=== PATIENT | male | born 1960 | race American Indian/Alaskan Native ===

== ENCOUNTER 2020-11-02 16:20 | Emergency (ER) | payer SELFPAY ==
--- NOTE | 2020-11-02 16:34 | Event Note ---
ED Screening Note ED Screening Note: Patient presents for hypertension Denies any headache, chest pain, shortness of breath, vision changes, numbness, weakness, speech disturbance, gait disturbance Blood pressure is 212/149 This initial assessment/diagnostic orders/clinical plan/treatment(s) is/are subject to change based on patients health status, clinical progression and re- assessment by fellow clinical providers in the ED. Further treatment and workup at subsequent clinical providers discretion. Patient/guardian urged not to elope from the ED as their condition may be serious if not clinically assessed and managed. Initial orders include: Hypertensive urgency orders
[2020-11-02 17:23] LABS: Bilirubin,Urine NEG (Negative); Blood,Urine NEG (Negative); Color,Urine Yellow (Yellow); Mucus,Urine FEW /HPF; Protein,Urine <15 mg/dL mg/dL (Negative); Urobilinogen,Urine < 2.0 mg/dL (<2.0); WBC,Urine < 1.0 /HPF (0.0-6.0)
[2020-11-02 17:36] LABS: Basophils # (Auto) 0.1 K/mm3 (0.0-0.1); Basophils % (Auto) 0.7 % (0.0-1.8); Eosinophils # (Auto) 0.1 K/mm3 (0.0-0.4); Eosinophils % (Auto) 1.8 % (0.0-4.3); Hemoglobin 14.4 gm/dl (11.8-15.2); Lymphocytes # (Auto) 2.4 K/mm3 (1.2-5.4); Mean Corpuscular HGB Conc 33 % (32-34); Mean Corpuscular Volume 89 fl (84-94); Monocytes # (Auto) 0.5 K/mm3 (0.0-0.8); Platelet Count 164 K/mm3 (140-440); Red Blood Count 4.97 M/mm3 (3.65-5.03); Red Cell Distribution Width 13.8 % (13.2-15.2)
[2020-11-02 17:56] LABS: Alanine Aminotransferase 13 units/L (7-56); Albumin 4.5 g/dL (3.9-5); BUN/Creatinine Ratio 11; Blood Urea Nitrogen 13 mg/dL (9-20); Calcium 9.9 mg/dL (8.4-10.2); Hemolysis Index 9
[2020-11-02] MEDS ORDERED: cloNIDine 0.1 MG TAB PO ONE ×2 (17:57→18:43)
--- NOTE | 2020-11-02 18:00 | Emergency Department Report ---
ED General Adult HPI - General Chief complaint: High BP Stated complaint: HIGH BLOOD PRESSURE Time Seen by Provider: 11/02/20 16:30 Source: patient Mode of arrival: Ambulatory Limitations: No Limitations - History of Present Illness Initial comments: Patient is 60 years old male with history of hypertension, noncompliant with his medication. Patient went to a clinic today and found that his blood pressure is high and they sent him to the ER. Patient currently denying any symptoms. Patient denied any headache, neck pain, chest pain, shortness of breath, weakness numbness or tingling sensation. Patient stated that the last time he took his blood pressure medicine was 5 months ago. Patient found to have a blood pressure of 212/140. Severity scale (0 -10): 0 - Related Data Previous Rx's Medication Instructions Recorded Last Taken Type amLODIPine 10 mg PO DAILY #30 tab 11/02/20 Unknown Rx hydroCHLOROthiazide [HCTZ] 25 mg PO QDAY #30 tablet 11/02/20 Unknown Rx Allergies Allergy/AdvReac Type Severity Reaction Status Date / Time No Known Allergies Allergy Unverified 11/02/20 16:21 ED Review of Systems ROS: Stated complaint: HIGH BLOOD PRESSURE Other details as noted in HPI Comment: All other systems reviewed and negative Constitutional: denies: chills, fever Respiratory: denies: cough, shortness of breath, SOB with exertion, SOB at rest Cardiovascular: denies: chest pain, palpitations Gastrointestinal: denies: abdominal pain, nausea, vomiting Musculoskeletal: denies: back pain Neurological: denies: headache, weakness, numbness, paresthesias, confusion, abnormal gait ED Past Medical Hx - Past Medical History Hx Hypertension: Yes - Surgical History Past Surgical History?: No - Medications Home Medications: Home Medications Medication Instructions Recorded Confirmed Last Taken Type amLODIPine 10 mg PO DAILY #30 tab 11/02/20 Unknown Rx hydroCHLOROthiazide [HCTZ] 25 mg PO QDAY #30 tablet 11/02/20 Unknown Rx ED Physical Exam - General Limitations: No Limitations General appearance: alert, in no apparent distress - Head Head exam: Present: atraumatic, normocephalic, normal inspection - Eye Eye exam: Present: normal appearance, PERRL - ENT ENT exam: Present: normal exam, normal orophraynx, mucous membranes moist - Neck Neck exam: Present: normal inspection, full ROM. Absent: tenderness, meningismus, lymphadenopathy, thyromegaly - Respiratory Respiratory exam: Present: normal lung sounds bilaterally - Cardiovascular Cardiovascular Exam: Present: regular rate, normal rhythm, normal heart sounds - GI/Abdominal GI/Abdominal exam: Present: soft, normal bowel sounds. Absent: distended, tenderness, guarding, rebound, rigid, organomegaly, mass, bruit, pulsatile mass, hernia - Extremities Exam Extremities exam: Present: normal inspection, full ROM, normal capillary refill. Absent: tenderness, pedal edema, joint swelling, calf tenderness - Back Exam Back exam: Present: normal inspection, full ROM. Absent: CVA tenderness (R), CVA tenderness (L) - Neurological Exam Neurological exam: Present: alert, oriented X3, CN II-XII intact, normal gait, reflexes normal. Absent: motor sensory deficit - Psychiatric Psychiatric exam: Present: normal mood - Skin Skin exam: Present: warm, intact, normal color ED Course Vital Signs 11/02/20 11/02/20 11/02/20 16:30 18:07 18:09 Temperature 98.6 F Pulse Rate 103 H 83 83 Respiratory 20 18 Rate Blood Pressure 210/144 Blood Pressure 210/152 [Left] Blood Pressure 212/149 210/144 [Right] O2 Sat by Pulse 100 99 Oximetry 11/02/20 11/02/20 11/02/20 18:50 19:15 20:00 Temperature 97.9 F Pulse Rate 74 72 75 Respiratory 18 18 Rate Blood Pressure 245/131 Blood Pressure 218/124 179/108 [Left] Blood Pressure [Right] O2 Sat by Pulse 100 100 Oximetry ED Medical Decision Making - Lab Data Result diagrams: 11/02/20 16:59 11/02/20 16:59 - EKG Data -: EKG Interpreted by Ks EKG shows normal: sinus rhythm Rate: normal - EKG Data Interpretation: no acute changes - Medical Decision Making Patient is 60 years old male with history of hypertension, noncompliant with his medication. Patient went to a clinic today and found that his blood pressure is high and they sent him to the ER. Patient currently denying any symptoms. Patient denied any headache, neck pain, chest pain, shortness of breath, weakness numbness or tingling sensation. Patient stated that the last time he took his blood pressure medicine was 5 months ago. Patient found to have a blood pressure of 212/140. Labs reviewed and is unremarkable. Patient received clonidine 0.3 mg and his blood pressure significantly improved. Patient upon discharge still denying any headache, neck pain, chest pain, shortness of breath, abdominal pain, weakness numbness or tingling sensation. Patient given prescription for amlodipine 10 mg and hydrochlorothiazide 25 mg and advised to follow-up with his primary doctor in the next 2 to 3 days and to return to the ER if he develop any new symptoms. Critical care attestation.: If time is entered above; I have spent that time in minutes in the direct care of this critically ill patient, excluding procedure time. ED Disposition Clinical Impression: Malignant hypertension Disposition: DC-01 TO HOME OR SELFCARE Is pt being admited?: No Condition: Stable Instructions: Hypertension, Adult, [id number], Hypertension (ED) Prescriptions: amLODIPine 10 mg PO DAILY #30 tab hydroCHLOROthiazide [HCTZ] 25 mg PO QDAY #30 tablet Referrals: PRIMARY CARE, [Primary Care Provider] - 3-5 Days
[2020-11-02 20:22] VITALS: BP 179/108
== END 2020-11-02 20:56 | disposition home or self-care (01) ==
LOC: ED 16:20
DX: I10 Essential (primary) hypertension (principal); Z79.899 Other long term (current) drug therapy
CPT/HCPCS: 36415; 80053; 81001; 85025; 93005